=== PATIENT | female | born 1955 | race Caucasian/White ===

== ENCOUNTER 2016-04-21 17:23 | Inpatient (IN) | payer MEDICAID ==
[~2016-04-21 17:23] MED LIST: ACETAMINOPHEN650 MG PO; ACTOS15 MG PO; ACYCLOVIR400 MG PO; ADVAIR 2501 DISK W/D; ALBUTEROL0.63 MG/1 INH; ALBUTEROL0.83 MG/ML INH; ALBUTEROL17 GM; AMARYL4 MG PO; ANTIBACTERIAL TOP; ARTHRITIS PAIN650 M7 PO; ATARAX25 MG PO; AVELOX400 MG; AZATHIOPRINE50 MG PO; BACITRACIN28.4 G2 TOP; BISACODYL10 M1 PR; BROVANA15 MCG/2 M IH; BROVANA15 MCG/22 INH; CELLCEPT500 MG PO; CEPHALEXIN500 MG PO; CHANTIX1 M1 PO; CLARITIN10 M6 PO; CLEOCIN HCL300 MG PO; CLINDAMYCIN HC300 MG PO; CLONAZEPAM1 M1 PO; CLONAZEPAM1 MG; COLACE100 M1 PO; COLACE100 MG PO; COMBIVENT RESPIM4 G1 INH; COZAAR100 MG PO; COZAAR25 MG PO; COZAAR50 M1 PO; CRESTOR20 MG PO; CYCLOBENZAPRINE10 MG PO; CYMBALTA30 MG PO; DESYREL100 MG PO; DESYREL100 MG/TAB PO; DEXTROSE 50%-WA50 M3 IV; DOXEPIN HCL25 MG PO; ED K+1010 MEQ PO; EXCEDRIN EXTRA1 EAC4 PO; EYE DROP EACH EYE; FERROUS SULFAT325 MG PO; FLAGYL500 MG PO; FUROSEMIDE40 M1 PO; GABAPENTIN400 M3 PO; GLIMEPIRIDE1 M1 PO; GLIMEPIRIDE4 MG PO; GLUCAGEN1 MG/1 ML IM; GLUCAGON EMERGEN1 MG IM; GLUCAGON1 MG/KIT IM; HUMALOG100 U/ML SQ; HUMALOG100 UNIT/2 SC; HUMALOG100 UNITS/ SC; HYDROCHLOROTHIA25 M1 PO; HYDROCHLOROTHIA25 MG PO; HYDROXYZINE HCL25 MG; HYDROXYZINE HCL25 MG PO; IBUPROFEN100 MG PO; IMODIUM A-1 MG/7.51 PO; IPRAT-ALBUT 0.5-3 ML INH; K-DUR10 ME1 PO; KLONOPIN1 M1 PO; KLONOPIN1 MG PO; KLONOPIN2 MG; LAMISIL250 MG PO; LANTUS100 U/ML SC; LASIX40 MG PO; LASIX80 M1 PO; LEVEMIR100 UNITS/ SC; LIPITOR40 M1 PO; LIPITOR40 MG; LOSARTAN POTAS100 MG PO; LOVENOX40 MG/0.1 SC; MACROBID 100 M100 M1 PO; MACROBID100 MG/CAP PO; MACRODANTIN100 MG PO; MILK OF MA400 MG/5 M PO; MILK OF MAGNESIA PO; MIRALAX17 G2 PO; MIRTAZAPINE30 MG; MIRTAZAPINE30 MG PO; MUCINEX600 MG PO; MULTIVITAMINS1 EAC6 PO; MYCOSTATIN15 GM TP; NEURONTIN300 M1 PO; NEURONTIN300 MG; NICODERM14 MG/PAT1 TD; NICORETTE2 MG CH; NITROGLYCERIN0.4 MG; NORCO 5/325 TAB1 TAB PO; NORCO 5/3251 TAB PO; NORVASC5 M1 PO; NORVASC5 M2 PO; OCEAN104 ML; OMEPRAZOLE20 M2 PO; ONDANSETRON HCL4 MG PO; OXYCODONE/APAP PO; OXYGEN; OXYGEN INH; PERCOCET 5-3251 EACH PO; PERCOCET 5/3251 TAB PO; POTASSIUM CHLO20 ME2 PO; PREDNISONE10 MG PO; PREDNISONE20 M1 PO; PREDNISONE20 MG PO; PREDNISONE5 M1 PO; PREDNISONE5 MG PO; PRILOSEC20 MG PO; PROPRANOLOL HCL10 M1 PO; PROVENTIL HFA6.7 GM IH; PULMICORT0.5 MG/2 M IH; PULMICORT0.5 MG/21 IH; PULMICORT0.5 MG/22 NEB; REMERON30 MG PO; REQUIP2 M1 PO; ROXICODONE5 M2 PO; SENNA8.6 M2 PO; SENOKOT8.6 M1 PO; SILVADENE20 G1 TOP; SPIRIVA18 MCG IH; SYMBICORT 160-4.6 GM IH; SYSTANE 0.3-0.415 ML OP; TESSALON200 MG PO; TRAZODONE HCL100 M1 PO; TRAZODONE HCL100 MG PO; TRAZODONE HCL300 MG PO; TRAZODONE PO; TRAZODONE100 MG; TRAZODONE100 MG PO; TYLENOL325 MG PO; ULTRAM50 M1 PO; VALTREX1000 MG PO; VENTOLIN HFA18 GM IH; VITAMIN B12 SC; VITAMIN D-50000 IU/C PO; VITAMIN D250000 UNIT PO; VITAMIN D32000 UNI1 PO; VITAMIN D3400 UNI5 PO; VITAMIN D35000 UNIT PO; VYTORIN 10/80 T1 TAB; XANAX0.25 MG PO; XANAX0.5 MG PO; XARELTO15 M1 PO; XARELTO20 M1 PO; ZEBETA5 M2 PO; ZITHROMAX250 MG PO; ZYPREXA ZYDIS10 MG PO; ZYRTEC10 MG PO; [UNRECOGNIZED DRUG - OTHER] IV; [UNRECOGNIZED DRUG - REMARK]; [UNRECOGNIZED DRUG - REMARK]
[2016-04-21] MEDS ORDERED: TYLENOL325 M2 PO ×2 (18:47→19:10)
[2016-04-21] MEDS ORDERED: BUSPIRONE HCL10 M2 PO (18:52)
[2016-04-21] MEDS ORDERED: METOPROLOL TART25 M1 PO (19:03)
[2016-04-21] MEDS ORDERED: VITAMIN D3400 UNI5 PO (19:09)
[2016-04-21] MEDS ORDERED: [UNRECOGNIZED DRUG - OTHER] CH (19:12)
[2016-04-21] MEDS ORDERED: POLYETHYLENE G255 G1 PO (19:14)
[2016-04-21] MEDS ORDERED: BISCOLAX10 MG PR (19:14)
[2016-04-21] MEDS ORDERED: ENEMA READY TO133 M1 PR (19:14)
[2016-04-21] MEDS ORDERED: PROAIR HFA8.5 GM INH (19:15)
[2016-04-21] MEDS ORDERED: ROBAFEN DM COU118 M1 PO (19:15)
[2016-04-21] MEDS ORDERED: NYAMYC15 GM TP (19:24)
[2016-04-21] MEDS ORDERED: SUNSCREEN SPF8120 ML TP (19:24)
[2016-04-21 19:51] LABS: BASO % 0.1 % (0-2); EOS % 0.9 % (0-7); EOSINOPHIL ABSOLUTE COUNT 0.1 tho/cmm (0.0-0.7); HCT-HEMATOCRIT 45.2 % (34.0-49.0); LYMPH ABSOLUTE COUNT 2.5 tho/cmm (0.8-4.5); MCH (MEAN CORPUSCULAR HGB) 31.7 pg (28.0-32.0); MCV (MEAN CELL VOLUME) 102.5 fl (82.0-96.0); MEAN PLATELET VOLUME 10.8 cmc (9.4-12.4); MONO % 7.6 % (0-12); MONOCYTE ABSOLUTE COUNT 0.8 tho/cmm (0.0-1.2); NEUTROPHILS % 66.4 % (40-80); PLATELET COUNT 198 tho/cmm (150-450); RED BLOOD COUNT 4.41 mil/cmm (4.00-5.20); RED CELL DISTRIBUTION WIDTH 14.1 % (12.4-16.4); WHITE BLOOD COUNT 10.5 tho/cmm (4.0-10.0)
[2016-04-21 20:10] LABS: ALB/GLOB RATIO 0.7 (0.8-2.0); ALBUMIN 3.2 g/dl (3.5-5.0); ALKALINE PHOSPHATASE 143 U/L (33-138); ALT/SGPT 30 U/L (12-78); ANION GAP 7 mmol/L (0-20); AST/SGOT 18 U/L (10-40); BILIRUBIN,TOTAL 0.3 mg/dl (0-1.5); BLOOD UREA NITROGEN 13 mg/dl (6-24); CALCIUM 9.5 mg/dl (8.5-10.5); CHLORIDE 100 mmol/l (96-110); CREATININE 0.75 mg/dl (0.50-1.10); GLUCOSE 139 mg/dL (70-110); POTASSIUM 4.5 mmol/L (3.7-5.1); SODIUM 143 mmol/L (135-145); eGFR VALUE FOR BLACK >90 mL/Min
[2016-04-21 20:16] LABS: CARBON DIOXIDE-VENOUS 41 mmol/L (22-32)
[2016-04-22 06:46] LABS: URINE APPEARANCE CLEAR; URINE COLOR YELLOW; URINE SPECIFIC GRAVITY 1.015 (1.003-1.030)
[2016-04-22 06:47] LABS: URINE BILIRUBIN NEGATIVE (NEG); URINE BLOOD MODERATE (NEG); URINE GLUCOSE (UA) POSITIVE (NEG); URINE KETONE NEGATIVE (NEG); URINE LEUKOCYTE ESTERASE NEGATIVE (NEG); URINE NITRITE NEGATIVE (NEG); URINE PROTEIN POSITIVE (NEG)
[2016-04-22 07:03] LABS: URINE EPITHELIAL CELLS 0-1 /[HPF] (0-10)
[2016-04-22 07:11] LABS: BASO % 0.1 % (0-2); HCT-HEMATOCRIT 43.3 % (34.0-49.0); HGB-HEMOGLOBIN 13.5 gm/dl (12.0-15.5); IMMATURE GRANULOCYTES ABSOLUTE 0.09 tho/cmm (0-0.03); IMMATURE GRANULOCYTES PERCENT 0.7 % (0-0.3); LYMPH ABSOLUTE COUNT 1.1 tho/cmm (0.8-4.5); MCH (MEAN CORPUSCULAR HGB) 31.7 pg (28.0-32.0); MCHC MEAN CORPUSCULAR HGB CONC 31.2 % (32.0-36.0); MCV (MEAN CELL VOLUME) 101.6 fl (82.0-96.0); MEAN PLATELET VOLUME 11.1 cmc (9.4-12.4); MONO % 1.5 % (0-12); MONOCYTE ABSOLUTE COUNT 0.2 tho/cmm (0.0-1.2); NEUTROPHILS % 88.7 % (40-80); PLATELET COUNT 200 tho/cmm (150-450); RED BLOOD COUNT 4.26 mil/cmm (4.00-5.20); RED CELL DISTRIBUTION WIDTH 13.9 % (12.4-16.4); WHITE BLOOD COUNT 12.4 tho/cmm (4.0-10.0)
[2016-04-22 07:30] LABS: ALB/GLOB RATIO 0.7 (0.8-2.0); ALBUMIN 2.9 g/dl (3.5-5.0); ALKALINE PHOSPHATASE 121 U/L (33-138); ALT/SGPT 32 U/L (12-78); ANION GAP 7 mmol/L (0-20); AST/SGOT 18 U/L (10-40); BILIRUBIN,TOTAL 0.2 mg/dl (0-1.5); BLOOD UREA NITROGEN 16 mg/dl (6-24); CALCIUM 8.5 mg/dl (8.5-10.5); CARBON DIOXIDE-VENOUS 39 mmol/L (22-32); CHLORIDE 98 mmol/l (96-110); CREATININE 0.78 mg/dl (0.50-1.10); MAGNESIUM 2.1 mg/dl (1.3-2.6); POTASSIUM 4.3 mmol/L (3.7-5.1); SODIUM 140 mmol/L (135-145); eGFR VALUE FOR BLACK >90 mL/Min
[2016-04-22 07:31] LABS: GLUCOSE 240 mg/dL (70-110)
[2016-04-23 06:02] LABS: BLOOD UREA NITROGEN 23 mg/dl (6-24); CALCIUM 8.7 mg/dl (8.5-10.5); CHLORIDE 98 mmol/l (96-110); CREATININE 0.78 mg/dl (0.50-1.10); GLUCOSE 265 mg/dL (70-110); POTASSIUM 4.2 mmol/L (3.7-5.1); SODIUM 143 mmol/L (135-145); eGFR VALUE FOR BLACK >90 mL/Min
[2016-04-23 06:48] LABS: ANION GAP 6 mmol/L (0-20)
[2016-04-23 07:13] LABS: CARBON DIOXIDE-VENOUS 43 mmol/L (22-32)
[2016-04-24 05:45] LABS: BASO % 0.1 % (0-2); HCT-HEMATOCRIT 45.6 % (34.0-49.0); HGB-HEMOGLOBIN 13.9 gm/dl (12.0-15.5); IMMATURE GRANULOCYTES ABSOLUTE 0.07 tho/cmm (0-0.03); IMMATURE GRANULOCYTES PERCENT 0.5 % (0-0.3); LYMPH % 7.5 % (20-45); MCH (MEAN CORPUSCULAR HGB) 31.3 pg (28.0-32.0); MCHC MEAN CORPUSCULAR HGB CONC 30.5 % (32.0-36.0); MCV (MEAN CELL VOLUME) 102.7 fl (82.0-96.0); MEAN PLATELET VOLUME 10.8 cmc (9.4-12.4); MONO % 5.7 % (0-12); MONOCYTE ABSOLUTE COUNT 0.8 tho/cmm (0.0-1.2); NEUTROPHIL ABSOLUTE COUNT 11.4 tho/cmm (1.6-8.0); NEUTROPHIL-AUTOMATED 11.4 tho/cmm (1.6-8.0); NEUTROPHILS % 86.2 % (40-80); PLATELET COUNT 210 tho/cmm (150-450); RED BLOOD COUNT 4.44 mil/cmm (4.00-5.20); RED CELL DISTRIBUTION WIDTH 13.6 % (12.4-16.4); WHITE BLOOD COUNT 13.3 tho/cmm (4.0-10.0)
[2016-04-24 06:00] LABS: ANION GAP 8 mmol/L (0-20); BLOOD UREA NITROGEN 28 mg/dl (6-24); CHLORIDE 94 mmol/l (96-110); CREATININE 0.84 mg/dl (0.50-1.10); GLUCOSE 291 mg/dL (70-110); POTASSIUM 4.4 mmol/L (3.7-5.1); SODIUM 139 mmol/L (135-145); eGFR VALUE FOR BLACK 88 mL/Min
[2016-04-24 06:04] LABS: CARBON DIOXIDE-VENOUS 41 mmol/L (22-32)
[2016-04-25 06:36] LABS: BLOOD UREA NITROGEN 29 mg/dl (6-24); CALCIUM 9.3 mg/dl (8.5-10.5); CHLORIDE 92 mmol/l (96-110); CREATININE 0.78 mg/dl (0.50-1.10); GLUCOSE 200 mg/dL (70-110); SODIUM 138 mmol/L (135-145); eGFR VALUE FOR BLACK >90 mL/Min
[2016-04-25 07:12] LABS: ANION GAP 6 mmol/L (0-20); CARBON DIOXIDE-VENOUS 45 mmol/L (22-32); POTASSIUM 4.6 mmol/L (3.7-5.1)
[2016-04-26 04:49] LABS: PLATELET COUNT 197 tho/cmm (150-450)
[2016-04-26 04:58] LABS: BLOOD UREA NITROGEN 32 mg/dl (6-24); CALCIUM 9.1 mg/dl (8.5-10.5); CHLORIDE 95 mmol/l (96-110); CREATININE 0.77 mg/dl (0.50-1.10); GLUCOSE 190 mg/dL (70-110); SODIUM 139 mmol/L (135-145); eGFR VALUE FOR BLACK >90 mL/Min
[2016-04-26 05:46] LABS: ANION GAP 5 mmol/L (0-20); POTASSIUM 3.7 mmol/L (3.7-5.1)
[2016-04-26 05:47] LABS: CARBON DIOXIDE-VENOUS 43 mmol/L (22-32)
[2016-04-26] MEDS ORDERED: ZITHROMAX250 M1 PO (09:14)
[2016-04-26] MEDS ORDERED: ALDACTONE25 M1 PO (09:24)
[2016-04-26] MEDS ORDERED: PREDNISONE10 M1 (09:25)
== END 2016-04-26 14:10 | DRG 190 ==
LOC: EDMED 17:23 → EMR2 21:10 → PCUA 04-22 03:04
PROVIDERS: Emergency Medicine; Internal Medicine Cardiovascular Disease; ADMIT Internal Medicine
DX: J44.1 Chronic obstructive pulmonary disease with (acute) exacerbation (principal); I50.33 Acute on chronic diastolic (congestive) heart failure; J96.21 Acute and chronic respiratory failure with hypoxia; Z68.43 Body mass index [BMI] 50.0-59.9, adult; I11.0 Hypertensive heart disease with heart failure; G47.33 Obstructive sleep apnea (adult) (pediatric); E66.01 Morbid (severe) obesity due to excess calories; I73.9 Peripheral vascular disease, unspecified; F17.210 Nicotine dependence, cigarettes, uncomplicated; E11.9 Type 2 diabetes mellitus without complications; F41.9 Anxiety disorder, unspecified; K21.9 Gastro-esophageal reflux disease without esophagitis; F32.9 Major depressive disorder, single episode, unspecified; Z66 Do not resuscitate; Z90.49 Acquired absence of other specified parts of digestive tract; Z86.14 Personal history of Methicillin resistant Staphylococcus aureus infection; Z79.4 Long term (current) use of insulin; Z99.81 Dependence on supplemental oxygen; Z85.41 Personal history of malignant neoplasm of cervix uteri
CPT/HCPCS: G8978-GP-CK; G8979-GP-CJ; J0456; J0696; J1650; J1815; J1940; J2920; J2930; J7050; J7512